=== PATIENT | female | born 1980 | race African-American/Black ===

== ENCOUNTER 2017-04-14 21:42 | Emergency (ER) | payer BC, OTHER ==
[~2017-04-14] VITALS: Ht 165.1 cm; Wt 108.9 kg
--- NOTE | ~2017-04-14 | EKG ---
[address] [address] ELECTROCARDIOGRAM REPORT Name: MICHAEL KING [id number] Admission: 04/14/17 Attend Phys: Discharge: 04/15/17 Date of : 84 Report #: [id number] THIS REPORT FOR: //name// [facility] ED Test Date: 2017-04-14 Test Time: 22:02:15 Pat Name: MICHAEL KING Department: Room: Gender: F Chief Of Staff: ANGY : 1980 Requested By: Elayne Rodríguez Order Number: [id number] MD: Christian Johnson Measurements Intervals Jay Em Rate: 85 P: 68 NH: 169 QRS: 27 QRSD: 88 T: 50 QT: 370 QTc: 440 Interpretive Statements Sinus rhythm Compared to ECG 09/02/2015 17:34:44 tachycardia no longer present Electronically Signed On 04-15-2017 8:29:33 ALUMINUM MOLDER by Christian Johnson [email or web address] <ELECTRONICALLY SIGNED> By: Christian Johnson MD 04/15/17 0829 220 01 Christian Johnson MD /HENRY
[~2017-04-14 21:42] MED LIST: ACCUNEB SO1.25 MG/1 INH; ACTIVELLA 0.5-1 EACH PO; ALBUTEROL SUL5 MG/ML; ALBUTEROL2.5 MG/31 IH; ANTIVERT25 MG PO; ASPIRIN EC81 M1 PO; AUGMENTIN 875875 MG PO; CLARITIN10 MG PO; COLACE100 MG PO; DULERA 100 MCG/13 GM; ENDOCET 5-3251 EACH PO; FEMHRT 0.5 MG-1 EACH PO; FIORICET 50-321 EACH PO; FLONASE 0.05%50 MCG NASAL; FLONASE16 GM; HYDROCODON-ACE1 EAC7 PO; IBUPROFEN 600600 M1 PO; IBUPROFEN 800800 M1 PO; IMITREX100 MG; IRON325 PO; MAGNESIUM OXID400 MG PO; MAGNESIUM27 MG; MOBIC7.5 MG PO; MUCINEX TA600 MG/TA2 PO; NAPROXEN DELAY500 M1; NORCO 5-325 TA1 EACH PO; PERCOCET 5-3251 EACH PO; PHENTERMINE H37.5 MG PO; PREDNISONE 20 M20 MG PO; PREDNISONE 5 MG5 M1 PO; PREDNISONE50 MG PO; PRILOSEC 20 MG20 MG PO; PROMETHAZINE-C120 ML PO; PROVENTIL INH; SAVELLA50 MG; SYMBICORT160 MCG/4. INH; UNICOMPLEX M TA1 TA1 PO; ZANTAC 150MG T150 M1 PO; ZOFRAN ODT4 MG PO; ZPAK PO; ZYRTEC 10 MG TA10 M1
[2017-04-14 22:31] LABS: ABSOLUTE NEUTROPHILS 5.4 thou/uL (1.4-8.2); BASOPHILS 0.5 % (0.0-2.0); EOSINOPHILS 2.3 % (0.0-3.0); HEMATOCRIT 37.1 % (37.0-47.0); HEMOGLOBIN 12.3 gm/dL (12.0-15.0); LYMPHOCYTES 38.8 % (24.0-44.0); MCHC 33.3 g/dL (28.0-37.0); MCV 78.1 fL (80.0-100.0); MONOCYTES 6.5 % (1.0-8.0); PLATELET COUNT 336 thou/uL (150-400); POLYS 51.9 % (36.0-66.0); RBC 4.75 mil/uL (4.20-5.00); RDW 13.9 % (10.5-14.5); WBC 10.5 thou/uL (4.0-11.0)
[2017-04-14 22:39] LABS: CALCIUM 9.3 mg/dL (8.5-10.1); MAGNESIUM 2.1 mg/dL (1.8-2.4); POTASSIUM 3.5 mmol/L (3.5-5.1)
[2017-04-14 22:42] LABS: URINE BILIRUBIN NEGATIVE (Negative); URINE BLOOD 1+ (Negative); URINE CLARITY CLEAR; URINE COLOR YELLOW; URINE GLUCOSE-RANDOM* NEGATIVE (Negative); URINE KETONES NEGATIVE (Negative); URINE LEUKOCYTES-REFLEX NEGATIVE (Negative); URINE NITRITE-REFLEX NEGATIVE (Negative); URINE PROTEIN (DIPSTICK) NEGATIVE (Negative); URINE SPECIFIC GRAVITY 1.015 (1.005-1.035); URINE UROBILINOGEN 0.2 E.U./dl (0.2-1.0)
[2017-04-14 22:51] LABS: BACTERIA-REFLEX None Seen /HPF (None Seen); CASTS None Seen /LPF (None Seen); CRYSTALS None Seen /LPF (None Seen); MUCUS None Seen strn/LPF (None Seen); SQUAMOUS 0-3 Few /LPF (0-3); URINE RBC 0-2 Rare /HPF (0-2); URINE WBC-REFLEX None Seen /HPF (0-5)
[2017-12-25] MEDS ORDERED: TYLENOL EXTRA500 MG PO (09:48)
[2017-12-25] MEDS ORDERED: MOBIC7.5 MG PO (11:36)
== END 2017-04-15 00:40 | disposition home or self-care (01) ==
LOC: ER 21:42
PROVIDERS: Emergency Medicine
DX: R00.2 Palpitations (principal); R42 Dizziness and giddiness; J44.9 Chronic obstructive pulmonary disease, unspecified; M79.7 Fibromyalgia; K21.9 Gastro-esophageal reflux disease without esophagitis; Z88.8 Allergy status to other drugs, medicaments and biological substances; Z90.710 Acquired absence of both cervix and uterus

== ENCOUNTER → 2018-06-05 | Outpatient (CLI) | payer BC, OTHER ==
[~2018-06-05] MED LIST changes: +TYLENOL EXTRA500 MG PO
== END ==
LOC: ULTRA 11:27
DX: N63.11 Unspecified lump in the right breast, upper outer quadrant (principal)